=== PATIENT | male | born 1980 | race Caucasian/White ===

== ENCOUNTER 2016-09-07 09:08 | Emergency (ER) | payer BC ==
--- NOTE | 2016-09-07 09:49 | EDM.PDOC ---
ED HPI GENERAL MEDICAL PROBLEM - General Chief Complaint: Respiratory Problem Stated Complaint: COUGHING Time Seen by Provider: 09/07/16 09:39 - History of Present Illness INITIAL COMMENTS - FREE TEXT/NARRATIVE: HISTORY AND PHYSICAL: History of present illness: The patient is a 36-year-old male who has a history of tobacco use but no drug use and has seasonal allergy history and presents with 3 days of a dry hacking cough that is keeping him up at night. He denies fever or chest pain shortness of breath sore throat runny nose but does have slight sinus congestion but he is not blowing anything out of his nose. He has no abdominal complaints and has been eating and drinking normally. Presents for evaluation of this problem Review of systems: As per history of present illness and below otherwise all systems reviewed and negative. Past medical history: As per history of present illness and as reviewed below otherwise noncontributory. Surgical history: As per history of present illness and as reviewed below otherwise noncontributory. Social history: No reported history of drug or alcohol abuse. Family history: As per history of present illness and as reviewed below otherwise noncontributory. Physical exam: Gen.: Well-developed well-nourished man speaking clearly and easily and vital signs of been reviewed by me HEENT: Atraumatic, normocephalic, pupils reactive, negative for conjunctival pallor or scleral icterus, mucous membranes moist, throat clear, neck supple, nontender, trachea midline. Lungs: Clear to auscultation, breath sounds equal bilaterally, chest nontender. No work of breathing or accessory muscle use no wheezing or stridor Heart: S1S2, regular rate and rhythm no overt murmurs Abdomen: Deferred Pelvis: Deferred Genitourinary: Deferred. Rectal: Deferred. Extremities: Atraumatic, negative for cords or calf pain. Neurovascular unremarkable. Neuro: Awake, alert, oriented. Cranial nerves II through XII unremarkable. Cerebellum unremarkable. Motor and sensory unremarkable throughout. Exam nonfocal. Diagnostics: [] Therapeutics: [] I discussed with the patient that imaging would not be beneficial as he has good lung sounds and good air exchange and his O2 sats and vitals are stable. In light of his symptoms I would treat it symptomatically with [id number] Claritin and cough medications as well as lozenges. Advise follow-up with family doctor if the symptoms persist Impression: Cough Definitive disposition and diagnosis as appropriate pending reevaluation and review of above. - Related Data Allergies Allergy/AdvReac Type Severity Reaction Status Date / Time Penicillins Allergy Anaphylactic Verified 09/07/16 09:38 Shock Home Meds: Home Meds . [No Known Home Meds] 04/02/14 [History] Past Medical History - Infectious Disease History Infectious Disease History: Reports: Chicken Pox Social & Family History - Family History Cardiac: Reports: Hypertension, [place] - Tobacco Use Smoking Status *Q: Former Smoker Years of Tobacco use: 20 Packs/Tins Daily: 0.5 - Recreational Drug Use Recreational Drug Use: No ED ROS GENERAL - Review of Systems Review Of Systems: ROS reveals no pertinent complaints other than HPI. ED EXAM, GENERAL - Physical Exam Exam: See Below (See dictation) Course - Vital Signs Last Recorded V/S: Last Vital Signs Temp 36.7 C 09/07/16 09:39 Pulse 84 09/07/16 09:39 Resp 18 09/07/16 09:39 BP 124/79 09/07/16 09:39 Pulse Ox 97 09/07/16 09:39 Departure - Departure Time of Disposition: 09:48 Disposition: Home, Self-Care 01 Condition: Good Clinical Impression: Cough - Discharge Information Forms: ED Department Discharge Additional Instructions: The following information is given to patients seen in the emergency department who are being discharged to home. This information is to outline your options for follow-up care. We provide all patients seen in our emergency department with a follow-up referral. The need for follow-up, as well as the timing and circumstances, are variable depending upon the specifics of your emergency department visit. If you don't have a primary care physician on staff, we will provide you with a referral. We always advise you to contact your personal physician following an emergency department visit to inform them of the circumstance of the visit and for follow-up with them and/or the need for any referrals to a consulting specialist. The emergency department will also refer you to a specialist when appropriate. This referral assures that you have the opportunity for followup care with a specialist. All of these measure are taken in an effort to provide you with optimal care, which includes your followup. Under all circumstances we always encourage you to contact your private physician who remains a resource for coordinating your care. When calling for followup care, please make the office aware that this follow-up is from your recent emergency room visit. If for any reason you are refused follow-up, please contact the [facility] emergency department at and ask to speak to the emergency department charge nurse. [facility] Primary care- Internal Medicine and Family [address] [address] Please start to use [id number] medications as we discussed, Claritin, Claritin-D or Sury. Push hydration and use cough medicine when you're at home. These call and follow-up with your family doctor for further care and evaluation and return to ER as needed and as discussed
[2016-09-07 10:02] VITALS: BP 124/84
== END 2016-09-07 09:56 | disposition home or self-care (01) ==
LOC: MW.ED 09:08
DX: R05 Cough (principal); I10 Essential (primary) hypertension; I25.2 Old myocardial infarction; Z87.891 Personal history of nicotine dependence; Z88.0 Allergy status to penicillin
CPT/HCPCS: 99282; 99283

== ENCOUNTER 2018-07-01 08:36 | Emergency (ER) | payer BC ==
[2018-07-01 08:50] VITALS: BP 115/93
--- NOTE | 2018-07-01 08:55 | EDM.PDOC ---
ED HPI GENERAL MEDICAL PROBLEM - General Chief Complaint: Eye Problems Stated Complaint: REDNESS IN EYE Time Seen by Provider: 07/01/18 08:53 Source of Information: Reports: Patient - History of Present Illness INITIAL COMMENTS - FREE TEXT/NARRATIVE: HISTORY AND PHYSICAL: History of present illness: Patient presents with injected sclera some crusting in his lashes he is a contact lens user, recently is contact fell out on the ground and replaced back into his eye without cleaning and presents as such he has discarded the contact lenses since symptoms for 3 days no double vision blurred vision or light sensitivity left eye affected, right eye is within normal limits Review of systems: As per history of present illness and below otherwise all systems reviewed and negative. Past medical history: As per history of present illness and as reviewed below otherwise noncontributory. Surgical history: As per history of present illness and as reviewed below otherwise noncontributory. Social history: No reported history of drug or alcohol abuse. Family history: As per history of present illness and as reviewed below otherwise noncontributory. Physical exam: HEENT: Atraumatic, normocephalic, pupils reactive, negative for conjunctival pallor or scleral icterus, mucous membranes moist, throat clear, neck supple, nontender, trachea midline. Lungs: Clear to auscultation, breath sounds equal bilaterally, chest nontender. Heart: S1S2, regular, negative for clicks, rubs, or JVD. Abdomen: Soft, nondistended, nontender. Negative for masses or hepatosplenomegaly. Negative for costovertebral tenderness. Pelvis: Stable nontender. Genitourinary: Deferred. Rectal: Deferred. Extremities: Atraumatic, negative for cords or calf pain. Neurovascular unremarkable. Neuro: Awake, alert, oriented. Cranial nerves II through XII unremarkable. Cerebellum unremarkable. Motor and sensory unremarkable throughout. Exam nonfocal. Diagnostics: [Lamp fluorescein Clinical ] Therapeutics: [Gent ophthalmic ] Impression: [ mild corneal abrasion Conjunctivitis ] Definitive disposition and diagnosis as appropriate pending reevaluation and review of above. Left Eye Pain Score (Numeric/FACES): 2 - Related Data Allergies Allergy/AdvReac Type Severity Reaction Status Date / Time Penicillins Allergy Anaphylactic Verified 07/01/18 08:47 Shock Home Meds: Home Meds . [No Known Home Meds] 04/02/14 [History] Past Medical History - Past Health History Medical/Surgical History: Denies Medical/Surgical History HEENT History: Reports: None Cardiovascular History: Reports: None Respiratory History: Reports: None Gastrointestinal History: Reports: None Genitourinary History: Reports: None Musculoskeletal History: Reports: None Neurological History: Reports: None Psychiatric History: Reports: None Endocrine/Metabolic History: Reports: None Hematologic History: Reports: None Immunologic History: Reports: None Oncologic (Cancer) History: Reports: None Dermatologic History: Reports: None - Infectious Disease History Infectious Disease History: Reports: Chicken Pox - Past Surgical History Head Surgeries/Procedures: Reports: None Social & Family History - Family History Family Medical History: Noncontributory Cardiac: Reports: Hypertension, [place] - Tobacco Use Smoking Status *Q: Current Every Day Smoker Years of Tobacco use: 15 Packs/Tins Daily: 0 Used Tobacco, but Quit: No Second Hand Smoke Exposure: No - Caffeine Use Caffeine Use: Reports: Coffee - Recreational Drug Use Recreational Drug Use: No ED ROS GENERAL - Review of Systems Review Of Systems: See Below ED EXAM GENERAL W FULL EYE - Physical Exam Exam: See Below Course - Vital Signs Last Recorded V/S: Last Vital Signs Temp 96.9 F 07/01/18 08:47 Pulse 75 07/01/18 08:47 Resp 13 07/01/18 08:47 BP 115/93 H 07/01/18 08:47 Pulse Ox 97 07/01/18 08:47 Departure - Departure Time of Disposition: 08:54 Disposition: Home, Self-Care 01 Condition: Good Clinical Impression: Conjunctivitis, Corneal abrasion - Discharge Information Referrals: PCP,None [Primary Care Provider] - Additional Instructions: The following information is given to patients seen in the emergency department who are being discharged to home. This information is to outline your options for follow-up care. We provide all patients seen in our emergency department with a follow-up referral. The need for follow-up, as well as the timing and circumstances, are variable depending upon the specifics of your emergency department visit. If you don't have a primary care physician on staff, we will provide you with a referral. We always advise you to contact your personal physician following an emergency department visit to inform them of the circumstance of the visit and for follow-up with them and/or the need for any referrals to a consulting specialist. The emergency department will also refer you to a specialist when appropriate. This referral assures that you have the opportunity for follow-up care with a specialist. All of these measure are taken in an effort to provide you with optimal care, which includes your follow-up. Under all circumstances we always encourage you to contact your private physician who remains a resource for coordinating your care. When calling for follow-up care, please make the office aware that this follow-up is from your recent emergency room visit. If for any reason you are refused follow-up, please contact the [facility] emergency department at and asked to speak to the emergency department charge nurse.
== END 2018-07-01 09:04 | disposition home or self-care (01) ==
LOC: MW.ED 08:36
DX: H18.823 Corneal disorder due to contact lens, bilateral (principal); H10.9 Unspecified conjunctivitis; F17.210 Nicotine dependence, cigarettes, uncomplicated; Z88.0 Allergy status to penicillin
CPT/HCPCS: 99282; 99283